=== PATIENT | male | born 1990 | race African-American/Black ===

== ENCOUNTER 2023-12-04 16:23 | Emergency (ER) | payer OTHER ==
[~2023-12-04] VITALS: Ht 177.8 cm; Wt 90.0 kg
[2023-12-04 16:24] VITALS: BP 142/78; PULSE 86; TEMP 98.5; O2SAT 99
[2023-12-04] MEDS ORDERED: KETOROLAC 30MG/ML VIAL IV ONE (19:00)
[2023-12-04] MEDS: KETOROLAC 30MG/ML VIAL IM NR (19:44)
[2023-12-04] MEDS: HYDROCODONE/ACETAMINOPHEN 5/325MG TABLET PO PRN (19:44)
[2023-12-04 21:00] VITALS: RESP 17
[2023-12-04] MEDS ORDERED: ACET-2708 MT (21:19)
[2023-12-04] MEDS ORDERED: IBUP-2030 MT (21:19)
== END 2023-12-04 21:20 | disposition home or self-care (01) ==
LOC: ER 16:23
DX: S50.01XA Contusion of right elbow, initial encounter (principal); S93.402A Sprain of unspecified ligament of left ankle, initial encounter; V49.49XA Driver injured in collision with other motor vehicles in traffic accident, initial encounter; X58.XXXA Exposure to other specified factors, initial encounter; Y93.89 Activity, other specified; Y92.89 Other specified places as the place of occurrence of the external cause; Y99.8 Other external cause status
CPT/HCPCS: 73080; 73610; 73630; 96372; 99284; J1885; Z7610